=== PATIENT | male | born 1960 | race Caucasian/White ===

== ENCOUNTER 2018-03-14 15:17 | Emergency (ER) | payer OTHER ==
[~2018-03-14] VITALS: Ht 180.3 cm; Wt 75.0 kg
[~2018-03-14 15:17] MED LIST: ADVIL200 MG PO; ASPIRIN EC325 MG; CLONAZEPAM0.5 MG PO; COUMADIN2.5 MG PO; COUMADIN5 MG PO; CYMBALTA60 MG PO; ENDOCET 5-3251 EACH PO; FLEXERIL10 MG PO; FLONASE; FLONASE16 G1 BOTH NARES; GABAPENTIN300 MG PO; GENTAMICIN SULFA5 ML RIGHT EYE; Habitrol,Nicoderm CQ TD; KLONOPIN0.5 M1 PO; LIBRIUM25 MG PO; LOPRESSOR25 MG PO; LORAZEPAM1 MG PO; LYRICA; Lopressor PO; MULTIVITAMIN1 EAC2 PO; NICOTINE PATCH1 EAC1 TD; OXYCODONE HCL10 MG PO; PERCOCET 7.51 TABLET PO; Protonix PO; REMERON15 M2 PO; THIAMINE HCL100 MG PO; TRAZODONE HCL50 MG PO; TYLENOL EXTRA500 MG PO; ULTRAM50 MG PO; VISTARIL25 MG PO; ZANAFLEX4 M1 PO; ZANTAC150 MG PO; ZOFRAN4 MG PO; ZYRTEC; ZYRTEC10 M3 PO; [UNRECOGNIZED DRUG - OTHER] PO
[2018-03-14 15:52] LABS: BASOPHIL (%) 0.5 % (0-1); EOSINOPHIL (%) 0.5 % (0-5); HEMOGLOBIN 16.5 G/DL (12.5-16.6); IMMATURE GRANULOCYTE (%) 0.3 % (0.0-0.7); LYMPHOCYTE (%) 18.7 % (15-42); LYMPHOCYTE COUNT 1.7 K/uL (1.0-2.8); MCH 32.9 PG (29.0-34.0); MCHC 35.1 G/DL (30.0-36.0); MCV 93.6 FL (86-99); MONOCYTE (%) 8.6 % (3-12); MONOCYTE COUNT 0.8 K/uL (0-0.8); NEUTROPHIL (%) 71.4 % (45-76); NEUTROPHIL COUNT 6.3 K/uL (1.8-6.4); PLATELET COUNT 188 K/uL (156-360); RBC DIS.WIDTH-CV 13.3 % (11.8-14.6); RBC DIS.WIDTH-SD 46.1 % (39-53); RED BLOOD COUNT 5.02 M/uL (4.00-5.50); WHITE BLOOD COUNT 8.8 K/uL (4.1-10.2)
[2018-03-14 16:01] LABS: ALBUMIN 4.4 g/dL (3.2-4.8); CHLORIDE 103 mEq/L (99-109); POTASSIUM 3.9 mEq/L (3.7-5.4); SODIUM 139 mEq/L (136-147)
[2018-03-14 16:03] LABS: GLUCOSE 93 mg/dL (70-99); TOTAL PROTEIN 7.8 g/dL (6.4-8.3)
[2018-03-14 16:05] LABS: TOTAL BILIRUBIN 0.6 mg/dL (0.0-1.0)
[2018-03-14 16:06] LABS: SERUM ETHYL ALCOHOL 201 mg/dL
[2018-03-14 16:07] LABS: ALKALINE PHOSPHATASE 79 IU/L (3-129); CREATININE 0.7 mg/dL (0.6-1.3); GFR ESTIMATE (CALCULATED) > 59 mL/min/ (58.99-99999)
[2018-03-14 16:08] LABS: AST (GOT) 108 IU/L (2-34); UREA NITROGEN (BUN) 15 mg/dL (9-23)
[2018-03-14 16:10] LABS: ALT (GPT) 149 IU/L (3-49); CREATINE KINASE 138 IU/L (1-294); TOTAL CK 138 IU/L (1-294)
[2018-03-14 16:15] LABS: CK-MB 2.2 ng/mL (0.0-4.9); CKMB RELATIVE INDEX 1.6 (0.0-3.9)
[2018-03-14] MEDS ORDERED: ATIVAN2 MG PO (16:44)
[2018-03-14 16:58] VITALS: BP 124/94
[2018-03-14 17:04] LABS: THYROTROPIN (TSH) 1.2 MIU/L (0.4-5.5)
== END 2018-03-14 16:59 | disposition left against medical advice (07) ==
LOC: EME 15:17
PROVIDERS: Emergency Medicine
DX: R25.1 Tremor, unspecified (principal); F10.10 Alcohol abuse, uncomplicated; I10 Essential (primary) hypertension; K21.9 Gastro-esophageal reflux disease without esophagitis; J45.909 Unspecified asthma, uncomplicated; F41.9 Anxiety disorder, unspecified; F32.9 Major depressive disorder, single episode, unspecified; F31.9 Bipolar disorder, unspecified; F17.200 Nicotine dependence, unspecified, uncomplicated; Z82.0 Family history of epilepsy and other diseases of the nervous system; Z85.9 Personal history of malignant neoplasm, unspecified; Z98.890 Other specified postprocedural states; Z88.5 Allergy status to narcotic agent
CPT/HCPCS: 80053; 81003; 82550; 82553; 84443; 85025; 99281; 99283; G0480

== ENCOUNTER 2018-03-16 22:23 | Emergency (ER) | payer OTHER ==
[~2018-03-16] VITALS: Ht 180.3 cm; Wt 77.3 kg
[~2018-03-16 22:23] MED LIST changes: +ATIVAN2 MG PO
[2018-03-16 23:20] LABS: AMPHETAMINE NEGATIVE (500 ng/mL); BARBITURATES NEGATIVE (200 ng/mL); BENZODIAZEPINES PRESUMPTIVE POSITIVE (150 ng/mL); BUPRENORPHINE NEGATIVE (10 ng/mL); COCAINE NEGATIVE (150 ng/mL); METHADONE NEGATIVE (200 ng/mL); METHAMPHETAMINE NEGATIVE (500 ng/mL); OPIATES (MORPHINE) NEGATIVE (100 ng/mL); OXYCODONE NEGATIVE (100 ng/mL); PHENCYCLIDINE NEGATIVE (25 ng/mL); PROPOXYPHENE NEGATIVE (300 ng/mL); THC CANNABINOIDS NEGATIVE (50 ng/mL); TRICYCLIC ANTIDEPRESSANTS NEGATIVE (300 ng/mL)
[2018-03-16 23:48] LABS: HEMATOCRIT 46.7 % (38.0-50.0); HEMOGLOBIN 16.2 G/DL (12.5-16.6); MCH 32.8 PG (29.0-34.0); MCHC 34.7 G/DL (30.0-36.0); MCV 94.5 FL (86-99); PLATELET COUNT 140 K/uL (156-360); RBC DIS.WIDTH-CV 13.7 % (11.8-14.6); RBC DIS.WIDTH-SD 48.1 % (39-53); RED BLOOD COUNT 4.94 M/uL (4.00-5.50)
[2018-03-16 23:56] LABS: CHLORIDE 107 mEq/L (99-109); POTASSIUM 3.6 mEq/L (3.7-5.4); SODIUM 145 mEq/L (136-147)
[2018-03-16 23:58] LABS: GLUCOSE 90 mg/dL (70-99)
[2018-03-17 00:01] LABS: SERUM ETHYL ALCOHOL 327 mg/dL
[2018-03-17 00:02] LABS: CREATININE 0.7 mg/dL (0.6-1.3); GFR ESTIMATE (CALCULATED) > 59 mL/min/ (58.99-99999)
[2018-03-17 00:03] LABS: UREA NITROGEN (BUN) 14 mg/dL (9-23)
[2018-03-17 01:52] LABS: BENZODIAZEPINES, URINE SCREEN Negative (200 ng/mL)
[2018-03-17 05:43] LABS: APPEARANCE CLEAR ((CLEAR)); BILIRUBIN NEGATIVE; BLOOD SMALL; COLOR STRAW ((YELLOW)); GLUCOSE (STRIP) NEGATIVE; KETONES NEGATIVE; LEUKOCYTES NEGATIVE; NITRITE NEGATIVE; PROTEIN (STRIP) NEGATIVE; SPECIFIC GRAVITY 1.005 (1.000-1.030); UROBILINOGEN 0.2 MG/DL (0.2-1.0)
[2018-03-17 05:45] LABS: BACTERIA NONE SEEN /HPF; EPITHELIAL CELLS RARE /HPF; MUCUS NONE SEEN /LPF; RED BLOOD CELLS 0-5 /HPF (0-5); UCUL ADDED? NO; WHITE BLOOD CELLS 0-5 /HPF (0-5)
[2018-03-17 10:51] VITALS: BP 120/75
== END 2018-03-17 10:54 | disposition home or self-care (01) ==
LOC: EME 22:23
PROVIDERS: Emergency Medicine
DX: F10.10 Alcohol abuse, uncomplicated (principal); F32.9 Major depressive disorder, single episode, unspecified; K21.9 Gastro-esophageal reflux disease without esophagitis; J45.909 Unspecified asthma, uncomplicated; I10 Essential (primary) hypertension; F41.9 Anxiety disorder, unspecified; F31.9 Bipolar disorder, unspecified; F17.200 Nicotine dependence, unspecified, uncomplicated; Z88.5 Allergy status to narcotic agent
CPT/HCPCS: 70450; 80048; 81003; 84999; 85027; 90837; 99281; 99285; G0480; J1630